=== PATIENT | male | born 1990 | race Caucasian/White ===

== ENCOUNTER 2020-09-20 09:25 | Emergency (ER) | payer SELFPAY ==
[2020-09-20 10:23] LABS: Absolute Lymphocytes (CBC) 3.3 K/uL (0.7-4.9); Basophils % 0.7 % (0-1.3); Hematocrit 45.7 % (39.6-49.0); Lymphocytes % 29.6 % (15.3-44.8); MPV 8.3 fL (7.6-11.3); RBC Red Blood Cell Count 5.03 M/uL (4.33-5.43)
[2020-09-20 10:34] LABS: Protime INR 1.02
[2020-09-20 10:43] LABS: ALT/SGPT 23 U/L (12-78); AST/SGOT 15 U/L (15-37); Albumin 4.3 g/dL (3.4-5.0); Alkaline Phosphatase 87 U/L (45-117); BUN Blood Urea Nitrogen 17 mg/dL (7-18); Bicarbonate 29 mmol/L (21-32); Bilirubin Direct 0.1 mg/dL (0-0.2); Bilirubin Total 0.5 mg/dL (0.2-1.0); Glucose Level 79 mg/dL (74-106); Potassium 3.8 mmol/L (3.5-5.1); Protein, Total 7.8 g/dL (6.4-8.2); Sodium Level 142 mmol/L (136-145)
[2020-09-20] MEDS ORDERED: LORAZEPAM 1 MG TABLET ONE (11:38)
[2020-09-20] MEDS ORDERED: NICOTINE 21 MG/PAT TD ONE (11:38)
[2020-09-20 12:43] LABS: Urine Blood Negative (Negative); Urine Glucose Negative (Negative); Urine Protein 2+ (Negative); Urine Specific Gravity >=1.030 (1.005-1.030)
[2020-09-20 13:18] LABS: Barbiturates NEGATIVE (NEGATIVE); Benzodiazepines NEGATIVE (NEGATIVE); Cocaine NEGATIVE (NEGATIVE); METHAMPHETAM POSITIVE (NEGATIVE); Methadone NEGATIVE (NEGATIVE); Opiates NEGATIVE (NEGATIVE); Phencyclidine NEGATIVE (NEGATIVE); THC Cannibis POSITIVE (NEGATIVE)
--- NOTE | 2020-09-20 14:20 | ER ---
Nurse's Notes [facility] Name: Parish Morgan Age: 30 yrs Sex: Male : 1990 Arrival Date: 09/20/2020 Time: 09:27 Bed 25 Private MD: Diagnosis: Bipolar disorder Presentation: 09/20 09:44 Chief complaint: Patient states: I came today because i thought about hurting myself tw2 repeatedly. I had a couple of plans, cut my wrist, im too much of a pussy to do it myself. like yesterday i was walking into traffic like if they hit me they hit me. i lost hope. i have been bottling up stuff and just dont tell people. it has been that way for a year but now i am just acting on it. i also thought about overdosing. i am an active drug addict uppers, ectasy, marijuana. the last 6 months i have been hearing voices. i lost my brother and a bunch of friends to drugs and suicide and i get it like sometimes it would be easier to just now wake up. i also lost my dad Spouse and/or significant other states: he has been facing his demons for the past year and it has been getting worse and worse. i have been with him for 15 years. i dont know this person. he used to be completely opposite of what he is now. he has lost it in his mind. i have been trying to get him help and he just hasnt wanted to but now he wants to. we have a teenage daughter. Coronavirus screen: At this time, the client does not indicate any symptoms associated with coronavirus-19. Ebola Screen: Patient denies travel to an Ebola-affected area in the 21 days before illness onset. 09:44 Method Of Arrival: Ambulatory tw2 09:52 Initial Sepsis Screen: Does the patient meet any 2 criteria? No. Patient's initial tw2 sepsis screen is negative. Does the patient have a suspected source of infection? No. Patient's initial sepsis screen is negative. Risk Assessment: Do you want to hurt yourself or someone else? Patient reports no desire to harm self or others. Onset of symptoms was September 20, 2020. 09:52 Acuity: IRENE 2 tw2 Triage Assessment: 09:54 General: Appears in no apparent distress. slender, well groomed, Behavior is calm, tw2 cooperative, appropriate for age. Pain: Denies pain. 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 - Social history:: Smoking status: Patient reports the use of cigarette tobacco products, smokes one pack cigarettes per day. Patient uses street drugs, marijuana, adderal. Screenin:05 Abuse screen: Denies threats or abuse. Nutritional screening: No deficits noted. tw2 Tuberculosis screening: No symptoms or risk factors identified. Fall Risk None identified. Assessment: 10:33 General: Appears in no apparent distress. comfortable, Behavior is calm, cooperative. vg1 Pain: Denies pain. Neuro: Level of Consciousness is awake, alert, obeys commands, Oriented to person, place, time, situation. Cardiovascular: Patient's skin is warm and dry. Respiratory: Airway is patent Respiratory effort is even, unlabored. GI: No signs and/or symptoms were reported involving the gastrointestinal system. : No signs and/or symptoms were reported regarding the genitourinary system. EENT: No signs and/or symptoms were reported regarding the EENT system. Derm: Skin is intact, is healthy with good turgor. Musculoskeletal: Circulation, motion, and sensation intact. 11:09 Reassessment: Patient appears in no apparent distress at this time. No changes from vg1 previously documented assessment. Patient and/or family updated on plan of care and expected duration. Pain level reassessed. Patient is alert, oriented x 3, equal unlabored respirations, skin warm/dry/pink. pt appears to be calm, talking to at bedside. 12:31 Reassessment: Patient appears in no apparent distress at this time. No changes from vg1 previously documented assessment. Patient and/or family updated on plan of care and expected duration. Pain level reassessed. Patient is alert, oriented x 3, equal unlabored respirations, skin warm/dry/pink. pt watching tv, appears to be calm. 13:26 Reassessment: Patient appears in no apparent distress at this time. No changes from vg1 previously documented assessment. Pt resting with eyes closed. 14:01 Reassessment: Pt resting with eyes closed. Pt is at bedside. vg1 14:20 Reassessment: Marianela Cisneros financial services representative is at pt bedside. vg1 15:35 Reassessment: Marianela Cisneros financial services representative stated is recommending pt outpatient care. vg1 15:37 Reassessment: Patient appears in no apparent distress at this time. Patient and/or vg1 family updated on plan of care and expected duration. Pain level reassessed. Patient is alert, oriented x 3, equal unlabored respirations, skin warm/dry/pink. Pt at bedside Patient denies pain at this time. Psych: 09:44 [place] Suicide Severity Screening: In the past month, have you wished you were tw2 or wished you could go to sleep and not wake up? Patient responds "yes." Based off the client's responses additional C-SSRS screening is required. Subjective: Patient's mood is hopeless, "but then i have those highs too and then the lows so when im low that's why i take the uppers". Objective: Patient is cooperative, appears anxious at times, but then crying with significant other at bedside Speech is normal, fast Affect is appropriate. Safety Checks: Visitors are present. Commitment: Patient will be a voluntary commitment. 10:27 Patient uses marijuana Last use was "yesterday". Patient uses tobacco Frequency daily, tw2 "Adderall". 10:36 [place] Suicide Severity Screening: "In the past month, have you actually had any [facility] thoughts of killing yourself?" Patient responds "yes." Based off the client's response additional [place] suicide severity screening questions to be further documented on paper forms. "In your lifetime, have you ever done anything, started to do anything, or prepared to do anything to end your life?" Patient responds "yes." Patient reports suicidal intent within 3 past months. Interventions: Removed personal items and placed in bag. Patient placed in hospital gown. Searched person for dangerous items. Belonging list filled out. Vital Signs: 09:44 BP 140 / 90; Pulse 98; Resp 18; Temp 98.6; Pulse Ox 100% on R/A; Weight 68.04 kg (R); tw2 Height 6 ft. 0 in. (182.88 cm); 10:34 BP 113 / 82; Pulse 82; Resp 20; Pulse Ox 100% on R/A; vg1 09:44 Body Mass Index 20.34 (68.04 kg, 182.88 cm) tw2 ED Course: 09:27 Patient arrived in ED. mr 09:52 Triage completed. tw2 09:55 Arm band placed on. tw2 10:03 Renetta Quijano, RN is Primary Nurse. vg1 10:03 Maxim Lieberman PA is PHCP. cp 10:03 Johnny Savage MD is Attending Physician. cp 10:05 Bed in low position. Call light in reach. Adult w/ patient. tw2 10:12 Inserted saline lock: 20 gauge in left antecubital area, using aseptic technique. Blood tw2 collected. 13:01 contacted [facility] to have screener evaluate pt. bd 13:18 Safety checks: Items removed: yes. Door open/sign placed on door: yes. Family/friend [facility] present: no. Sitter present: Yes. 13:31 COVID swab sent to lab. mh5 16:04 No provider procedures requiring assistance completed. IV discontinued, intact, vg1 bleeding controlled, No redness/swelling at site. Pressure dressing applied. Administered Medications: 11:21 Drug: Nicoderm CQ 21 mg/24 hr 1 patches {Note: Left arm.} Route: Transdermal; Site: vg1 affected area; 15:38 Follow up: Response: No adverse reaction vg1 11:21 Drug: Ativan (LORazepam) 1 mg Route: PO; vg1 15:38 Follow up: Response: No adverse reaction vg1 Outcome: 14:19 ER care complete, transfer ordered by MD. cp 15:58 Discharge ordered by MD. cp 16:04 Discharged to home ambulatory, with family. vg1 16:04 Condition: stable 16:04 Discharge instructions given to patient, family, Instructed on discharge instructions, follow up and referral plans. Demonstrated understanding of instructions, follow-up care. 16:05 Patient left the ED. vg1 Signatures: Alma Mahoney AlbertIwona Maxim Lieberman PA PA cp Wise, Tara, RN RN tw2 Albertina Dominguez [facility] Renetta Quijano, RN RN vg1 Corrections: (The following items were deleted from the chart) 10: 09:44 Chief complaint: Patient states: I came today because i thought about hurting tw2 myself repeatedly. I had a couple of plans, cut my wrist, im too much of a pussy to do it myself. like yesterday i was walking into traffic like if they hit me they hit me. i lost hope. i have been bottling up stuff and just dont tell people. it has been that way for a year but now i am just acting on it. i also thought about overdosing. i am an active drug addict uppers, ectasy, marijuana. the last 6 months i have been hearing voices Spouse and/or significant other states: he has been facing his demons for the past year and it has been getting worse and worse. i have been with him for 15 years. i dont know this person. he used to be complete opposite of what he used to be. he has lost it in his mind. i have been trying to get him help and he just hasnt wanted to. tw2 13:52 13:31 CORONAVIRUS+.[email or web address] drawn and sent. [facility] EDMS
--- NOTE | 2020-09-20 14:20 | EDPHYS ---
Physician Documentation [facility] Name: Parish Morgan Age: 30 yrs Sex: Male : 1990 Arrival Date: 09/20/2020 Time: 09:27 Bed 25 Private MD: ED Physician Johnny Savage HPI: 09/20 10:05 This 30 yrs old Male presents to ER via Ambulatory with complaints of cp Suicidal Ideation. 10:05 The patient presents to the emergency department with suicide ideation. cp 10:05 Onset: The symptoms/episode began/occurred gradually. cp 10:05 Past psychiatric history: Prior diagnosis: bipolar disorder, Psychiatric medications cp include: none, the patient has not had a prior suicide gesture, the patient does not have a previous inpatient psychiatric history. Associated signs and symptoms: Pertinent positives; substance abuse, at times hearing a voice that calls his name, Pertinent negatives: abdominal pain, chest pain, fever. 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 - Social history:: Smoking status: Patient reports the use of cigarette tobacco products, smokes one pack cigarettes per day. Patient uses street drugs, marijuana, adderal. ROS: 10:10 Constitutional: Negative for body aches, chills, fever, poor PO intake. cp 10:10 Eyes: Negative for injury, pain, redness, and discharge. cp 10:10 Neck: Negative for pain with movement, pain at rest, stiffness. 10:10 Cardiovascular: Negative for chest pain. 10:10 Respiratory: Negative for cough, shortness of breath, wheezing. 10:10 Abdomen/GI: Negative for abdominal pain, nausea, vomiting, and diarrhea. 10:10 Neuro: Negative for altered mental status, dizziness, headache, weakness. 10:10 Psych: Positive for suicidal ideation, illegal drug use. 10:10 All other systems are negative. Exam: 10:15 Constitutional: The patient appears in no acute distress, alert, awake, cp non-diaphoretic, non-toxic, well developed, well nourished, anxious. 10:15 Head/Face: Normocephalic, atraumatic. cp 10:15 Eyes: Periorbital structures: appear normal, Conjunctiva: normal, no exudate, no injection, Sclera: no appreciated abnormality, Lids and lashes: appear normal, bilaterally. 10:15 ENT: External ear(s): are unremarkable, Nose: is normal, Mouth: Lips: moist, Oral mucosa: moist, Posterior pharynx: Airway: no evidence of obstruction, patent. 10:15 Chest/axilla: Inspection: normal, Palpation: is normal, no crepitus, no tenderness. 10:15 Cardiovascular: Rate: normal, Rhythm: regular. 10:15 Respiratory: the patient does not display signs of respiratory distress, Respirations: normal, no use of accessory muscles, no retractions, labored breathing, is not present, Breath sounds: are clear throughout, no decreased breath sounds. 10:15 Abdomen/GI: Inspection: abdomen appears normal, Palpation: abdomen is soft and non-tender, in all quadrants. 10:15 Neuro: Orientation: to person, place \T\ time. Mentation: is normal, Cerebellar function: is grossly normal, Motor: moves all fours, strength is normal, Sensation: is normal. 10:27 ECG was reviewed by the Attending Physician. cp Vital Signs: 09:44 BP 140 / 90; Pulse 98; Resp 18; Temp 98.6; Pulse Ox 100% on R/A; Weight 68.04 kg (R); tw2 Height 6 ft. 0 in. (182.88 cm); 10:34 BP 113 / 82; Pulse 82; Resp 20; Pulse Ox 100% on R/A; vg1 09:44 Body Mass Index 20.34 (68.04 kg, 182.88 cm) tw2 MDM: 10:08 Patient medically screened. cp 15:53 Data reviewed: vital signs, nurses notes, lab test result(s), EKG. ED course: Patient cp evaluated by [facility] and outpatient treatment recommended at this time. Patient denies any active thoughts of suicide. Denies hearing voices at this time. Will discharge to home to f/u outpatient with [facility]. 09/20 10:03 Order name: Acetaminophen cp 09/20 10:03 Order name: Basic Metabolic Panel cp 09/20 10:03 Order name: CBC with Diff cp 09/20 10:03 Order name: ETOH Level cp 09/20 10:03 Order name: Hepatic Function cp 09/20 10:03 Order name: PT-INR; Complete Time: 12:27 cp 09/20 10:03 Order name: Ptt, Activated; Complete Time: 12:27 cp 09/20 10:03 Order name: Salicylate; Complete Time: 12:27 cp 09/20 10:03 Order name: Urine Drug Screen; Complete Time: 13:58 cp 09/20 13:58 Interpretation: Normal except: METHAMPHETAMINE POSITIVE; THC POSITIVE. cp 09/20 10:03 Order name: Acetaminophen Level; Complete Time: 12:27 EDMS 09/20 10:03 Order name: Basic Metabolic Panel; Complete Time: 12:27 EDMS 09/20 10:03 Order name: CBC with Automated Diff; Complete Time: 12:27 EDMS 09/20 10:03 Order name: Alcohol Serum/Plasma; Complete Time: 12:27 EDMS 09/20 10:03 Order name: Liver (Hepatic) Function; Complete Time: 12:27 EDMS 09/20 10:03 Order name: EKG; Complete Time: 10:04 cp 09/20 10:03 Order name: EKG - Nurse/Tech; Complete Time: 10:23 cp 09/20 10:03 Order name: IV Saline Lock; Complete Time: 10:18 cp 09/20 10:03 Order name: Labs collected and sent; Complete Time: 10:18 cp 09/20 10:03 Order name: Suicide Screening ([place]); Complete Time: 10:23 09/20 10:03 Order name: Urine Dipstick-Ancillary (obtain specimen); Complete Time: 12:44 cp 09/20 11:03 Order name: Diet Finger Food; Complete Time: 11:03 vg1 09/20 12:43 Order name: Urine Dipstick-Ancillary; Complete Time: 13:58 EDMS 09/20 14:47 Order name: SARS-COV-2 RT PCR EDMS 09/20 15:25 Order name: Diet Regular; Complete Time: 15:26 tw2 EC:27 Rate is 81 beats/min. Rhythm is regular. [place] interval is normal. QRS interval is normal. cp QT interval is normal. T waves are Inverted in lead aVL. Interpreted by me. Reviewed by me. Administered Medications: 11:21 Drug: Nicoderm CQ 21 mg/24 hr 1 patches {Note: Left arm.} Route: Transdermal; Site: vg1 affected area; 15:38 Follow up: Response: No adverse reaction vg1 11:21 Drug: Ativan (LORazepam) 1 mg Route: PO; vg1 15:38 Follow up: Response: No adverse reaction vg1 Disposition: 17:11 Co-signature as Attending Physician, Johnny Savage MD I agree with the assessment and kdr plan of care. Disposition: 09/20/20 15:58 Discharged to Home. Impression: Bipolar disorder. - Condition is Stable. - Discharge Instructions: Bipolar Disorder. - Medication Reconciliation Form, Thank You Letter, Antibiotic Education, Prescription Opioid Use form. - Follow up: Private Physician; When: 1 - 2 days; Reason: Recheck today's complaints. - Problem is an ongoing problem. - Symptoms have improved. Signatures: Dispatcher [employer] [facility] Johnny Savage MD MD kdr Maxim Lieberman PA PA cp Nery Hernandez RN RN tw2 Renetta Quijano RN RN vg1 Corrections: (The following items were deleted from the chart) 11:52 10:10 This 30 yrs old Male presents to ER via Ambulatory with complaints of cp Suicidal Ideation. cp 13:52 13:03 CORONAVIRUS+MR.LAB.BRZ ordered. [facility] EDCA 15:55 14:19 09/20/2020 14:19 Transfer ordered to Psych Facility. Diagnosis is Suicidal cp ideations. Reason for transfer: Higher level of care. Accepting physician is Doctor. Condition is Stable. Problem is new. Symptoms have improved. cp 16:05 15:58 09/20/2020 15:58 Discharged to Home. Impression: Bipolar disorder. Condition is vg1 Stable. Forms are Medication Reconciliation Form, Thank You Letter, Antibiotic Education, Prescription Opioid Use. Follow up: Private Physician; When: 1 - 2 days; Reason: Recheck today's complaints. Problem is an ongoing problem. Symptoms have improved. cp
[2020-09-20 16:19] VITALS: TEMP 98.6; O2SAT 100
[2020-09-20 16:22] VITALS: BP 113/82
== END 2020-09-20 16:05 | disposition home or self-care (01) ==
LOC: ER 09:25
DX: F31.9 Bipolar disorder, unspecified (principal); F17.210 Nicotine dependence, cigarettes, uncomplicated; Z20.822 Contact with and (suspected) exposure to COVID-19
CPT/HCPCS: 36415; 80048; 80076; 80307; 80320; 80329; 81003; 85025; 85610; 85730; 93005; 99284; U0003